=== PATIENT | female | born 1995 | race Caucasian/White ===

== ENCOUNTER 2024-10-11 14:49 | Outpatient (CLI) | payer OTHER, SELFPAY ==
--- OUTSIDE RECORDS SUMMARY | 2024-10-11 15:23 | XMS_ITS | Clinical Summary ---
Author Organization [facility] Health Address [address] [place] [address] Care Team Providers Care Mail Processor Name Role Phone Suad Pineda MD Primary Care Provider [phone] Source Comments [facility],non-owned Affiliates and Associated Physician Practices is amultiple site organization consisting of ambulatory clinics and hospital sitesin [place], [place], [place] and [place]. This disclosure is being madepursuant to the Care Everywhere program and may not contain all information available regarding this patient. Last updated 18.[facility] [employer] Allergies No known active allergies Social History Tobacco Use Types Packs/Day Years Used Date Smoking Tobacco: Never Smokeless Tobacco: Never Alcohol Use Standard Drinks/Week Comments Never 0 (1 standard drink = 0.6 oz pur e alcohol) AUDIT-C Answer Date Recorded Q1: How often do you have a drink containing alc ohol? Never 09/30/2020 Average Number of Drinks Not on file 021 Frequency of Binge Drinking Not on file 09/03 Sex and Gender Information Value Date Recorded Sex Assigned at Not on file Gender Identity Female 02/21/2020 8:23 AM CDT Sexual Orientation Not on file Last Filed Vital Signs Vital Sign Reading Time Taken Comments Blood Pressure 117/76 09/30/2020 2:16 PM CDT Pulse 113 09/30/2020 2:16 PM CDT Temperature 36.3 C (97.3 F) 09/30/2020 2:16 PM CDT Respiratory Rate 18 09/30/2020 2:16 PM CDT Oxygen Saturation 100% 09/30/2020 2:16 PM CDT Inhaled Oxygen Concentration - - Weight 56.2 kg (124 lb) 09/30/2020 2:16 PM CDT Height 160 cm (5' 3 ) 09/30/2020 2:16 PM CDT Body Mass Index 21.97 09/30/2020 2:16 PM CDT Plan of Treatment Health Maintenance Due Date Last Done Comments HIV SCREENING 2009 HEPATITIS C SCREENING 01/19/2012 DTAP/TDAP/TD VACCINES (1 - Tdap) 2013 HEPATITIS B VACCINE (1 of 3 - 19+ 3-dose series) 2013 COVID-19 VACCINE ( - 2023-2 5 season) 2024 DEPRESSION SCREENING 07/04/2024 INFLUENZA VACCINE (Season Ended) 2025 ZOSTER VACCINE (1 of 2) 01/24/2044 HIB VACCINE Aged Out No longer eligi ble based on patient's age to complete this topic HPV VACCINE Aged Out No longer eligi ble based on patient's age to complete this topic MENINGOCOCCAL (Group B) VACC INE SHARED DECISION-MAKING Aged Out No longer eligibl e based on patient's age to complete this topic MENINGOCOCCAL GROUPS A/C/Y/W VACCINE Aged Out No longer eligible b ased on patient's age to complete this topic PNEUMOCOCCAL VACCINE Aged Out No long er eligible based on patient's age to complete this topic Care Teams Mail Processor Relationship Specialty Start Date End Date Suad Pineda MD [address] [place] [address] PCP - General Family Medicine 09/30/20
--- OUTSIDE RECORDS SUMMARY | 2024-10-11 15:23 | XMS_ITS | Clinical Summary ---
Author Organization [facility] Address [address] [place] [address] Phone Care Team Providers Care Principal Technical Architect Name Role Phone Unavailable Primary Care Provider Unavailabl e Allergies Active Allergy Reactions Criticality Noted Date Comments Shellfish Containing Products Anaphylaxis High 09/18 Medications vit-iron fumarate-fa (MONTSERRAT ) 28 mg iron- 800 mcg Tablet Take 1 Tablet by mouth daily. Active ferrous sulfate 325 mg (65 mg iron) tablet Take 325 mg by mouth daily. Active Active Problems Problem Noted Date Diagnosed Date 37 weeks gestation of 12/12/2023 Uterine contractions during 12/12/2023 Hx of section 12/12/2023 Intact amniotic membranes du ring in third trimester 12/08/2023 Encounters Date Type Department Care Team Description 09/19/2024 External Device Data [facility] ABSTRACTION Provider, Abstract 09/08/2024 External Device Data [facility]STRACTION Provider, Abstract 09/07/2024 External Device Data [facility] ABSTRACTION Provider, Abstract 09/04/2024 External Device Data [facility]STRACTION Provider, Abstract 08/22/2024 External Device Data [facility] ABSTRACTION Provider, Abstract 08/21/2024 External Device Data [facility] ABSTRACTION Provider, Abstract 08/07/2024 External Device Data [facility] ABSTRACTION Provider, Abstract 07/31/2024 External Device Data [facility] ABSTRACTION Provider, Abstract 07/26/2024 External Device Data [facility] ABSTRACTION Provider, Abstract 07/25/2024 External Device Data [facility] ABSTRACTION Provider, Abstract 07/24/2024 External Device Data [facility] ABSTRACTION Provider, Abstract from Last 3 Months Immunizations Immunization Administration Dates Next Due (INFANRIX)(6 WKS-6 YRS) DIPT HERIA, TETANUS TOXOIDS, AND ACCELLULAR PERTUSSIS VACCINE (DTAP), 0.5 ML IM 08/29/2019 (PNEUMOVAX 23)(50 YRS UP) PN EUMOCOCCAL POLYSACCHARIDE (PPV23) 0.5 ML, IM 01/28/2022 (SPIKEVAX) (12 YRS UP PRIMAR Y SERIES) COVID-19 VACCINE - MRNA-[id number](PF) 100 MCG/0.5 ML IM SUSP 11/15/2020,10/24/2020 INFLUENZA VACCINE QUADRIVALENT 6 MOS UP PF IM Influenza Seasonal Unspecified Formulation IM Social History Tobacco Use Types Packs/Day Years Used Date Smoking Tobacco: Never Alcohol Use Standard Drinks/Week Comments Not Currently 0 (1 standard drink = 0.6 oz pur e alcohol) Feeling Safe Answer Date Recorded Are you in a relationship wi th someone who hurts you emotionally and/or physically? 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 Gender Identity Not on file Sexual Orientation Not on file Last Filed Vital Signs Vital Sign Reading Time Taken Comments Blood Pressure 125/86 12/14/2023 7:50 AM CDT Pulse 81 12/14/2023 7:50 AM CDT Temperature 36.5 C (97.7 F) 12/14/2023 7:50 AM CDT Respiratory Rate 18 12/14/2023 7:50 AM CDT Oxygen Saturation 99% 12/12/2023 6:00 AM CDT Inhaled Oxygen Concentration - - Weight 87.5 kg (193 lb) 12/12/2023 12:48 AM CDT Height 160 cm (5' 3 ) 12/12/2023 12:48 AM CDT Body Mass Index 34.19 12/12/2023 12:48 AM CDT Plan of Treatment Health Maintenance Due Date Last Done Comments HEPATITIS B VACCINES (1 of 3 - 19+ 3-dose series) 2013 HPV/Cotest (21-29) 2015 CERVICAL CANCER SCREENING 01/24/2024 HPV/Cotest (30-65) 01/24/2024 PAP SMEAR 01/24/2024 INFLUENZA VACCINE (#1) 2024 , 03/21/2019 COVID-19 Vaccine (3 - 2023- season) 2024 11/15/2020, 10/24/2020 DTAP/TDAP/TD VACCINES (2 - Tdap) 08/29/2029 08/29/2019 HPV VACCINES Aged Out No longer elidavid restrepo based on patient's age to complete this topic Insurance [facility] Advance Directives For more information, please contact: [phone] * Full Code (Latest Code Status on File) Date Activated Date Inactivated Comments 12/12/2023 6:45 AM 12/14/2023 2:52 PM * Full Code Date Activated Date Inactivated Comments 12/12/2023 12:44 AM 12/12/2023 6:45 AM * Full Code Date Activated Date Inactivated Comments 12/08/2023 2:41 PM 12/08/2023 6:22 PM * Full Code Date Activated Date Inactivated Comments 09/19/2019 5:37 PM 09/22/2019 12:58 PM * Full Code Date Activated Date Inactivated Comments 09/19/2019 1:09 PM 09/19/2019 5:37 PM
--- OUTSIDE RECORDS SUMMARY | 2024-10-11 15:24 | XMS_ITS | Data Portability ---
Author Organization [place] - [facility] [employer] Address [address] [place] [address] Care Team Providers Care Concrete Batcher Name Role Phone ZAIDA JIMENEZ Cloth Classer LOURDES PEDRAZA Demurrage Clerk Assessment Encounter Date Assessment Date Assessment LastModified by Organization Details LastModified Time 01/12/2023 01/12/2023 Medication Changes D/C Concerta Vyvanse 30 mg qD Counseled on usage of medication. Discussed the purpose of the medication, the classification of the medication. Counseled on SE, AR, administration. Counseled on risks, benefits, plan, outcome of medication. labs to eval levels. Prior authorization completed for tablet vs capsule given her inability to swallow and causing to dissolve in upper esophagus leading to extreme distress and pain. Symptoms worsened d/t difficulties with taking medication. She has previously been given Lexapro, but it does not carry an FDA indication for OCD. Prozac carries an FDA indication for OCD and used for anxiety. Signs and symptoms of when to seek further care reviewed with patient/caregiver /family/facility staff. Patient to follow up with primary care provider or return to clinic for any worsening signs and symptoms. Always present to ER or Urgent Care with any progression of/alarming symptoms, significant changes in symptoms or any concerning or urgent matters. Patient/caregiver /family/facility staff verbalized agreement and understanding of treatment plan. F/U 4 weeks, sooner if needed - telemedicine My total encounter time was 45 minutes which was spent in the activities documented in the note. This includes time spent prior to the visit, performing a medically appropriate examination with evaluation, and after the visit in direct care of the patient (history and exam; ordering prescriptions/lab s/imaging/home health/therapy/sp ecialists; communicating results to patient and/or other relative individuals; counseling/educat ing patient; documenting clinical information in patient s chart; coordination of care for the patient). This time does not include time spent in any separately reportable services. Not available 01/12/2023 11:28:37 02/09/2023 02/09/2023 Medication Changes D/C Concerta Vyvanse 30 mg qD Prior authorization completed for Vyvanse. Approved this time. Will start and see how she does with such. Signs and symptoms of when to seek further care reviewed with patient/caregiver /family/facility staff. Patient to follow up with primary care provider or return to clinic for any worsening signs and symptoms. Always present to ER or Urgent Care with any progression of/alarming symptoms, significant changes in symptoms or any concerning or urgent matters. Patient/caregiver /family/facility staff verbalized agreement and understanding of treatment plan. F/U 4 weeks, sooner if needed - telemedicine My total encounter time was 30 minutes which was spent in the activities documented in the note. This includes time spent prior to the visit, performing a medically appropriate examination with evaluation, and after the visit in direct care of the patient (history and exam; ordering prescriptions/lab s/imaging/home health/therapy/sp ecialists; communicating results to patient and/or other relative individuals; counseling/educat ing patient; documenting clinical information in patient s chart; coordination of care for the patient). This time does not include time spent in any separately reportable services. [email or web address] Not available 02/09/2023 10:19:04 02/28/2024 02/28/2024 Medication Changes Signs and symptoms of when to seek further care reviewed with patient/caregiver /family/facility staff. Patient to follow up with primary care provider or return to clinic for any worsening signs and symptoms. Always present to ER or Urgent Care with any progression of/alarming symptoms, significant changes in symptoms or any concerning or urgent matters. Patient/caregiver /family/facility staff verbalized agreement and understanding of treatment plan. F/U 4 weeks, sooner if needed - telemedicine My total encounter time was 30 minutes which was spent in the activities documented in the note. This includes time spent prior to the visit, performing a medically appropriate examination with evaluation, and after the visit in direct care of the patient (history and exam; ordering prescriptions/lab s/imaging/home health/therapy/sp ecialists; communicating results to patient and/or other relative individuals; counseling/educat ing patient; documenting clinical information in patient s chart; coordination of care for the patient). This time does not include time spent in any separately reportable services. [email or web address] Not available 02/28/2024 19:01:53 03/27/2024 03/27/2024 Assessment: Generalized Anxiety Disorder (TIFFANIE): Partially controlled with fluoxetine 20 mg. Moris reports persistent breakthrough symptoms but is otherwise stable. She requests an increase in her medication to better manage her anxiety. Hypothyroidism: Thyroid function tests are within normal limits. No medication required at this time. Elevated Alkaline Phosphatase: Likely related to changes or IVF treatment. The patient denies any concerning symptoms and will be monitored. Plan: Generalized Anxiety Disorder (TIFFANIE): Increase fluoxetine to 40 mg daily for better symptom control. Follow-up in 3 months via telemedicine to assess response to the increased dosage. Discuss non-pharmacologic al strategies such as mindfulness and relaxation techniques during the next follow-up. Hypothyroidism: Continue monitoring thyroid function without current intervention as levels are normal. Elevated Alkaline Phosphatase: Order repeat alkaline phosphatase labs in 6-8 weeks (post-May 01). Lab order will be sent to [facility]. Follow up with lab results to determine if further investigation is needed. Follow-Up: Schedule next telemedicine visit for June 18 at 2 p.m. Moris to have her blood work completed before the next visit. The fluoxetine prescription has been sent to the pharmacy with a 90-day supply. Signs and symptoms of when to seek further care reviewed with patient/caregiver /family/facility staff. Patient to follow up with primary care provider or return to clinic for any worsening signs and symptoms. Always present to ER or Urgent Care with any progression of/alarming symptoms, significant changes in symptoms or any concerning or urgent matters. Patient/caregiver /family/facility staff verbalized agreement and understanding of treatment plan. F/U 12 weeks, sooner if needed - telemedicine My total encounter time was 30 minutes which was spent in the activities documented in the note. This includes time spent prior to the visit, performing a medically appropriate examination with evaluation, and after the visit in direct care of the patient (history and exam; ordering prescriptions/lab s/imaging/home health/therapy/sp ecialists; communicating results to patient and/or other relative individuals; counseling/educat ing patient; documenting clinical information in patient s chart; coordination of care for the patient). This time does not include time spent in any separately reportable services. [email or web address] Not available 03/27/2024 15:59:25 06/18/2024 06/18/2024 Elevated Alkalin e Phosphatase (Alfos) - Awaiting Alkaline Phosphatase Isoenzymes lab results to determine the source of elevation (liver, bone, intestine, or renal) - Consider potential causes such as tissue damage or adjustment issues Will contact patient upon results. Hypothyroidism - Thyroid function is currently normal - No current medications needed for hypothyroidism - Continue monitoring thyroid function, especially considering the patient's history of thyroid issues Generalized Anxiety Disorder - Patient is doing much better on fluoxetine 40 mg once daily - Schedule an appointment for behavioral health. Vitamin D Deficiency - Prescribe Vitamin D 50,000 units to be taken once a week to increase levels - Monitor Vitamin D levels and adjust treatment as needed Signs and symptoms of when to seek further care reviewed with patient/caregiver /family/facility staff. Patient to follow up with primary care provider or return to clinic for any worsening signs and symptoms. Always present to ER or Urgent Care with any progression of/alarming symptoms, significant changes in symptoms or any concerning or urgent matters. Patient/caregiver /family/facility staff verbalized agreement and understanding of treatment plan. F/U 1 year, sooner if needed My total encounter time was 30 minutes which was spent in the activities documented in the note. This includes time spent prior to the visit, performing a medically appropriate examination with evaluation, and after the visit in direct care of the patient (history and exam; ordering prescriptions/lab s/imaging/home health/therapy/sp ecialists; communicating results to patient and/or other relative individuals; counseling/educat ing patient; documenting clinical information in patient s chart; coordination of care for the patient). This time does not include time spent in any separately reportable services. Not available 06/18/2024 15:56:30 Plan of Treatment Reminders Order Date Submit Date Provider Last Modified By Organization Details Last Modified Time Details Appointments None recorded. Lab CMP, serum or plasma 2023 024 [facility], [id number] Tanja Grant, [address] [place], [address], 4 09:14:08 vitamin D, 25-hydroxy, total, serum 2023 024 [email or web address] [facility], [id number] [place] [address], [address], 4 07:04:23 TSH + free T4, serum 2023 024 [facility], [address] [place] [address], [address], 4 07:57:37 CBC 2023 024 EMETERIO [facility], [address] [place] [address], [address], 4 10:39:06 T3, free, serum or plasma 2023 024 [email or web address] [facility], [address] [place] [address], [address], 4 07:57:38 CMP, serum or plasma 2023 024 [email or web address], [address] [place] [address], [address], 4 02:02:56 thyroid peroxidase (tpo) Ab, serum 2023 024 [facility], [address] [place] [address], [address], 4 07:57:37 TSH + free T4, serum 2022 023 [email or web address] [facility], [id number] [place] [address], [address], 3 14:35:14 T3, free, serum or plasma 2022 023 [email or web address], [address] [address] [facility] [place], [address], 3 14:35:15 CMP, serum or plasma 2022 023 [email or web address], [address] [place], [place] [address], [address], 3 08:56:02 CBC 2022 023 [facility], [facility] [place], [address], 3 08:54:19 vitamin B12, serum 2022 023 [email or web address], [address] [place] [address], [address], 3 14:35:15 iron + TIBC + ferritin, serum 2022 023 [facility], [address] [place], [place] [address]ner [facility] [place], [address], 3 08:56:01 folate, serum 2022 023 [email or web address] [facility], [address] [place] [address], [address], 3 14:35:15 Referral None recorded. Procedures None recorded. Surgeries None recorded. Imaging None recorded. Medication Orders ergocalcife rol (vitamin D2) 1,250 mcg (50,000 unit) capsule 2023 024 [facility], [address] [place] [address], [id number], 4 15:06:09 fluoxetine 40 mg capsule 2023 024 [facility]84603, [address] [place] [address], [id number], 4 15:01:40 fluoxetine 40 mg capsule 2023 024 [facility], [address] [place] [address], [id number], 4 14:53:59 fluoxetine 20 mg capsule 2023 024 [facility], [address] [place] [address], [id number], 4 14:52:19 levothyroxi ne 75 mcg tablet 2022 023 [facility], [address] [place] [address], [id number], 3 10:00:02 Vyvanse 30 mg capsule 2022 023 [email or web address] [facility]35412, [address] [place] [address], [id number], 3 10:00:26 fluoxetine 10 mg tablet 2022 023 [facility], [address] [place] [address], [id number], 3 09:59:45 fluoxetine 20 mg capsule 2022 023 [email or web address] [facility] #81455, [address] [place] [address], [id number], 4 14:51:51 Vyvanse 30 mg capsule 2022 023 [email or web address] [facility], [address] [place] [address], [id number], 3 10:00:26 fluoxetine 10 mg tablet 2022 023 [email or web address] [facility] #41538, [address], [place], [id number], 3 09:59:36 fluoxetine 20 mg tablet 2022 023 [email or web address] [facility] #16516, [address], [place], [id number], 3 09:27:51 Patient TargetsNo targets recorded. Patient InstructionsNo instructions recorded. Reason for Referral None Reported. Results Created Date Observation Date Name Description Value Unit Range Abnormal Flag Note LastModifiedBy Organization Detail LastModifiedTime 01/13/2001/13/2023 CBC (H/H, RBC, INDIC ES, WBC, PLT) white blood cell count 4.2 thous and/u L 3.8-10 .8 normal Not Available [facility] [address], [address], 01/13/2023 08:54:19 01/13/2001/13/2023 CBC (H/H, RBC, INDIC ES, WBC, PLT) red blood cell count 5.05 nathaly on/uL 3.80-5 .10 normal Not Available [address], [address], 01/13/2023 08:54:19 01/13/2001/13/2023 CBC (H/H, RBC, INDIC ES, WBC, PLT) hemoglobin 12.7 g/dL 11.7-1 5.5 normal Not Available [facility] [address], [address], 01/13/2023 08:54:19 01/13/2001/13/2023 CBC (H/H, RBC, INDIC ES, WBC, PLT) hematocrit 41.0 % 35.0-4 5.0 normal Not Available [facility] [facility] [address] [place], [address], 01/13/2023 08:54:19 01/13/2001/13/2023 CBC (H/H, RBC, INDIC ES, WBC, PLT) MCV 81.2 fL 80.0-1 00.0 normal Not Available [facility] [address], [address], 01/13/2023 08:54:19 01/13/2001/13/2023 CBC (H/H, RBC, INDIC ES, WBC, PLT) MCH 25.1 pg 27.0-3 3.0 low Not Available [facility] [address], [address], 01/13/2023 08:54:19 01/13/2001/13/2023 CBC (H/H, RBC, INDIC ES, WBC, PLT) MCHC 31.0 g/dL 32.0-3 6.0 low Not Available [facility] [address], [address], 01/13/2023 08:54:01/13/2001/13/2023 CBC (H/H, RBC, INDIC ES, WBC, PLT) RDW 13.1 % 11.0-1 5.0 normal Not Available [facility] [address], [address], 01/13/2023 08:54:19 01/13/2001/13/2023 CBC (H/H, RBC, INDIC ES, WBC, PLT) platelet count 334 thous and/u L 140-40 0 normal Not Available [facility] [address], [address], 01/13/2023 08:54:19 01/13/2001/13/2023 CBC (H/H, RBC, INDIC ES, WBC, PLT) MPV 9.8 fL 7.5-12 .5 normal Not Available [facility] - [address], [address], 01/13/2023 08:54:19 01/13/2001/14/2023 IRON, TIBC AND RODNEY TIN PANEL iron, total 87 mcg/d L 40-190 normal Not Available [address], [address], 01/14/2023 01:59:01 01/13/2001/14/2023 IRON, TIBC AND RODNEY TIN PANEL iron binding capacity 456 mcg/d L_(ca lc) 250-45 0 high Not Available [address], [address], 01/14/2023 01:59:01 01/13/2001/14/2023 IRON, TIBC AND RODNEY TIN PANEL % saturation 19 %_(ca lc) 16-45 normal Not Available [address], [address], 01/14/2023 01:59:01 01/13/2001/14/2023 IRON, TIBC AND RODNEY TIN PANEL ferritin 20 NG/mL 16-154 normal Not Available [address], [address], 01/14/2023 01:59:01 01/13/2001/14/2023 TSH+F REE T4 TSH 1.58 mIU/L normal Refer ence Range > or = 20 Years 0.40- 4.50 Pregn radha Range s First trime ster 0.26- 2.66 Secon d trime ster 0.55- 2.73 Third trime ster 0.43- 2.91 Not Available [address], [address], 01/14/2023 01:59:02 01/13/20 23 01/14/2023 TSH+F REE T4 T4, free 1.5 NG/dL 0.8-1. 8 normal Not Available [address] [place], [address], 01/14/2023 01:59:02 01/13/2001/13/2023 COMPR EHENS CASS METAB OLIC PANEL glucose 93 mg/dL 65-99 normal Fasti ng refer ence inter eulalio Not Available [address], [address], 01/13/2023 14:19:09 01/13/2001/13/2023 COMPR EHENS CASS METAB OLIC PANEL urea nitrogen (BUN) 9 mg/dL 7-25 normal Not Available [address], [address], 01/13/2023 14:19:09 01/13/2001/13/2023 COMPR EHENS CASS METAB OLIC PANEL creatinine 0.70 mg/dL 0.50-0 .96 normal Not Available [address], [address], 01/13/2023 14:19:01/13/2001/13/2023 COMPR EHENS CASS METAB OLIC PANEL eGFR 121 mL/mi n/1.7 3m2 > or = 60 normal The eGFR is based on the CKD-E PI 2020 equat ion. To calcu late the new eGFR from a previ ous Creat inine or Cysta tin C resul t, go to https ://freida arias.o annamaria/ioana abraham/ kdoqi /gfr% 5Fcal culat or Not Available [address] [address] [place], [address], 01/13/2023 14:19:09 01/13/2001/13/2023 COMPR EHENS CASS METAB OLIC PANEL BUN/creatini ne ratio NOT APPLIC ABLE (calc ) 6-22 Not Available [address], [address], 01/13/2023 14:19:09 01/13/20 23 01/13/2023 COMPR EHENS CASS METAB OLIC PANEL sodium 137 mmol/ L 135-14 6 normal Not Available [address], [address], 01/13/2023 14:19:09 01/13/20 23 01/13/2023 COMPR EHENS CASS METAB OLIC PANEL potassium 4.7 mmol/ L 3.5-5. 3 normal Not Available [address], [address], 01/13/2023 14:19:01/13/2001/13/2023 COMPR EHENS CASS METAB OLIC PANEL chloride 105 mmol/ L 98-110 normal Not Available [address], [address], 01/13/2023 14:19:01/13/20 23 01/13/2023 COMPR EHENS CASS METAB OLIC PANEL carbon dioxide 18 mmol/ L 20-32 low Not Available [address], [address], 01/13/2023 14:19:09 01/13/20 23 01/13/2023 COMPR EHENS CASS METAB OLIC PANEL calcium 9.3 mg/dL 8.6-10 .2 normal Not Available [address], [address], 01/13/2023 14:19:09 01/13/2001/13/2023 COMPR EHENS CASS METAB OLIC PANEL protein, total 6.9 g/dL 6.1-8. 1 normal Not Available [address], [address], 01/13/2023 14:19:09 01/13/20 23 01/13/2023 COMPR EHENS CASS METAB OLIC PANEL albumin 4.3 g/dL 3.6-5. 1 normal Not Available [address] [place], [address], 01/13/2023 14:19:09 01/13/20 23 01/13/2023 COMPR EHENS CASS METAB OLIC PANEL globulin 2.6 g/dL_ (calc ) 1.9-3. 7 normal Not Available [address] [address] [place], [address], 01/13/2023 14:19:09 01/13/20 23 01/13/2023 COMPR EHENS CASS METAB OLIC PANEL albumin/glob ulin ratio 1.7 (calc ) 1.0-2. 5 normal Not Available [address], [address], 01/13/2023 14:19:01/13/20 23 01/13/2023 COMPR EHENS CASS METAB OLIC PANEL bilirubin, total 0.3 mg/dL 0.2-1. 2 normal Not Available [address] [address] [place], [address], 01/13/2023 14:19:01/13/20 23 01/13/2023 COMPR EHENS CASS METAB OLIC PANEL alkaline phosphatase 56 U/L 31-125 normal Not Available [place] [address] [place], [address], 01/13/2023 14:19:09 01/13/20 23 01/13/2023 COMPR EHENS CASS METAB OLIC PANEL AST 13 U/L 10-30 normal Not Available [address] [address] [place], [address], 01/13/2023 14:19:09 01/13/20 23 01/13/2023 COMPR EHENS CASS METAB OLIC PANEL ALT 12 U/L 6-29 normal Not Available [address] [place] [address] [place], [address], 01/13/2023 14:19:09 01/13/2001/14/2023 FOLAT E, SERUM folate, serum 16.1 NG/mL normal Refer ence Range Low: <3.4 Borde rline : 3.4-5 .4 Lora l: >5.4 Not Available [address], [address], 01/14/2023 01:59:04 01/13/2001/14/2023 VITAM IN B12 vitamin B12 329 pg/mL 200-11 00 normal Pleas e Note: Altho ugh the refer ence range for vitam in B12 is 200-1 100 pg/mL , it has been repor kurt that betwe en 5 and 10% of patie nts with value s betwe en 200 and 400 pg/mL may exper ience neuro psych iatri c and hemat ologi c abnor malit ies due to occul t B12 defic iency ; less than 1% of patie nts with value s above 400 pg/mL will have sympt oms. Not Available [address], [address], 01/14/2023 01:59:04 01/13/2001/14/2023 T3, FREE T3, free 3.1 pg/mL 2.3-4. 2 normal Not Available [address], [address], 01/14/2023 01:59:05 02/28/2002/29/2024 CBC (H/H, RBC, INDIC ES, WBC, PLT) white blood cell count 6.9 thous and/u L 3.8-10 .8 normal Not Available [facility] [facility] [address], [address], 02/29/2024 10:39:05 02/28/2002/29/2024 CBC (H/H, RBC, INDIC ES, WBC, PLT) red blood cell count 5.11 nathaly on/uL 3.80-5 .10 high Not Available [address] [place], [address], 02/29/2024 10:39:05 02/28/20 24 02/29/2024 CBC (H/H, RBC, INDIC ES, WBC, PLT) hemoglobin 12.5 g/dL 11.7-1 5.5 normal Not Available [address], [address], 02/29/2024 10:39:05 02/28/20 24 02/29/2024 CBC (H/H, RBC, INDIC ES, WBC, PLT) hematocrit 42.5 % 35.0-4 5.0 normal Not Available [address], [address], 02/29/2024 10:39:05 02/28/20 24 02/29/2024 CBC (H/H, RBC, INDIC ES, WBC, PLT) MCV 83.2 fL 80.0-1 00.0 normal Not Available [address], [address], 02/29/2024 10:39:05 02/28/20 24 02/29/2024 CBC (H/H, RBC, INDIC ES, WBC, PLT) MCH 24.5 pg 27.0-3 3.0 low Not Available [address], [address], 02/29/2024 10:39:05 02/28/20 24 02/29/2024 CBC (H/H, RBC, INDIC ES, WBC, PLT) MCHC 29.4 g/dL 32.0-3 6.0 low Not Available [address], [address], 02/29/2024 10:39:05 02/28/20 24 02/29/2024 CBC (H/H, RBC, INDIC ES, WBC, PLT) RDW 13.9 % 11.0-1 5.0 normal Not Available [facility] [address], [place], [address], 02/29/2024 10:39:05 02/28/20 24 02/29/2024 CBC (H/H, RBC, INDIC ES, WBC, PLT) platelet count 303 thous and/u L 140-40 0 normal Not Available [address], [address], 02/29/2024 10:39:05 02/28/20 24 02/29/2024 CBC (H/H, RBC, INDIC ES, WBC, PLT) MPV 10.0 fL 7.5-12 .5 normal Not Available [address], [address], 02/29/2024 10:39:05 02/28/20 24 03/02/2024 COMPR EHENS CASS METAB OLIC PANEL glucose 87 mg/dL 65-99 normal Fasti ng refer ence inter eulalio Not Available [address], [address], 03/02/2024 02:02:56 02/28/20 24 03/02/2024 COMPR EHENS CASS METAB OLIC PANEL urea nitrogen (BUN) 22 mg/dL 7-25 normal Not Available [address], [address], 03/02/2024 02:02:56 02/28/20 24 03/02/2024 COMPR EHENS CASS METAB OLIC PANEL creatinine 0.59 mg/dL 0.50-0 .97 normal Not Available [address], [address], 03/02/2024 02:02:56 02/28/20 24 03/02/2024 COMPR EHENS CASS METAB OLIC PANEL eGFR 124 mL/mi n/1.7 3m2 > or = 60 normal Not Available [address], [address], 03/02/2024 02:02:56 02/28/20 24 03/02/2024 COMPR EHENS CASS METAB OLIC PANEL BUN/creatini ne ratio SEE NOTE: (calc ) 6-22 Not Repor kurt: BUN and Creat inine are withi n refer ence range . Not Available [address], [address], 03/02/2024 02:02:56 02/28/20 24 03/02/2024 COMPR EHENS CASS METAB OLIC PANEL sodium 140 mmol/ L 135-14 6 normal Not Available [address], [address], 03/02/2024 02:02:56 02/28/20 24 03/02/2024 COMPR EHENS CASS METAB OLIC PANEL potassium 3.8 mmol/ L 3.5-5. 3 normal Not Available [address], [address], 03/02/2024 02:02:56 02/28/20 24 03/02/2024 COMPR EHENS CASS METAB OLIC PANEL chloride 108 mmol/ L 98-110 normal Not Available [address], [address], 03/02/2024 02:02:56 02/28/20 24 03/02/2024 COMPR EHENS CASS METAB OLIC PANEL carbon dioxide 21 mmol/ L 20-32 normal Not Available [address], [address], 03/02/2024 02:02:56 02/28/20 24 03/02/2024 COMPR EHENS CASS METAB OLIC PANEL calcium 9.0 mg/dL 8.6-10 .2 normal Not Available [address], [address], 03/02/2024 02:02:56 02/28/20 24 03/02/2024 COMPR EHENS CASS METAB OLIC PANEL protein, total 6.7 g/dL 6.1-8. 1 normal Not Available [facility] [address], [address], 03/02/2024 02:02:56 02/28/20 24 03/02/2024 COMPR EHENS CASS METAB OLIC PANEL albumin 4.4 g/dL 3.6-5. 1 normal Not Available [address], [address], 03/02/2024 02:02:56 02/28/20 24 03/02/2024 COMPR EHENS CASS METAB OLIC PANEL globulin 2.3 g/dL_ (calc ) 1.9-3. 7 normal Not Available [address], [address], 03/02/2024 02:02:56 02/28/20 24 03/02/2024 COMPR EHENS CASS METAB OLIC PANEL albumin/glob ulin ratio 1.9 (calc ) 1.0-2. 5 normal Not Available [facility] [address], [address], 03/02/2024 02:02:56 02/28/20 24 03/02/2024 COMPR EHENS CASS METAB OLIC PANEL bilirubin, total 0.3 mg/dL 0.2-1. 2 normal Not Available [address], [address], 03/02/2024 02:02:56 02/28/20 24 03/02/2024 COMPR EHENS CASS METAB OLIC PANEL alkaline phosphatase 145 U/L 31-125 high Not Available [facility] [employer] [address], [address], 03/02/2024 02:02:56 02/28/20 24 03/02/2024 COMPR EHENS CASS METAB OLIC PANEL AST 12 U/L 10-30 normal Not Available [facility] [employer] [address], [address], 03/02/2024 02:02:56 02/28/20 24 03/02/2024 COMPR EHENS CASS METAB OLIC PANEL ALT 15 U/L 6-29 normal Not Available [address], [address], 03/02/2024 02:02:56 02/28/20 24 03/02/2024 TSH+F REE T4 TSH 0.91 mIU/L normal Refer ence Range > or = 20 Years 0.40- 4.50 Pregn radha Range s First trime ster 0.26- 2.66 Secon d trime ster 0.55- 2.73 Third trime ster 0.43- 2.91 Not Available [address], [address], 03/02/2024 08:48:48 02/28/20 24 03/02/2024 TSH+F REE T4 T4, free 1.1 NG/dL 0.8-1. 8 normal Not Available [address], [address], 03/02/2024 08:48:48 02/28/20 24 03/02/2024 THYRO ID PEROX IDASE ANTIB ODIES thyroid peroxidase antibodies <1 IU/mL <9 Not Available [address], [address], 03/02/2024 08:48:51 02/28/20 24 03/02/2024 T3, FREE T3, free 2.8 pg/mL 2.3-4. 2 normal Not Available [address], [address], 03/02/2024 08:48:52 02/28/20 24 03/02/2024 VITAM IN D,25- OH,TO KATHERIN,I A vitamin D,25-oh,tota l,ia 28 NG/mL 30-100 low Vitam in D Statu s 25-OH Vitam in D: Defic iency : <20 ng/mL Insuf ficie ncy: 20 - 29 ng/mL Optim al: > or = 30 ng/mL For 25-OH Vitam in D testi ng on patie nts on D2-neely pplem entat ion and patie nts for whom quant itati on of D2 and D3 fract ions is requi red, the [employer] Assur eD(TM ) 25-OH VIT D, (D2,D 3), LC/MS /MS is recom garcía d: order code 22160 (drake ents >2yrs ). See Note 1 Note 1 For addit ional infor ignacio mcneil refer to http: //[facility] venessa thomas.Damián stDia gnost ics.[email or web address] om/fa q/FAQ 199 (This link is being provi ded for infor alfonzo patino/ educzhen rios purpo ses only. ) Not Available [address] [place] [address] [place], [address], 03/02/2024 07:40:48 Result Notes None recorded. Problems Name Problem SNOMED Code Status Onset Date Resolution Date Notes Provider Name and Address Organization Details Recorded Time Adult attention deficit hyperactivi ty disorder 103541894 Active 2020 BARBI Prajapati, PMHNP-BC [address] [place], [address], [facility] 3 11:05:19 Adult attention deficit hyperactivi ty disorder 853849075 Active 2020 BARBI Prajapati, PMHNP-BC [address] [place], [address], [facility] 3 11:05:19 Anxiety 40234431 Active 2020 BARBI Prajapati, PMHNP-BC [address] [place], [address], [place] [facility] 3 11:05:19 Hypothyroid ism 72173740 Active 2020 Crystal L. Stone, CHOIR SINGER-BC, PMHNP-BC [address], [place], [address], [facility] 3 11:05:19 Generalized anxiety disorder 46629604 Active 2021 CHELA PrajapatiP-BC, PMHNP-BC [address], [place], [address], [facility] 3 11:05:19 Moderate recurrent major depression 32228901 Active 2021 CHELA PrajapatiP-BC, PMHNP-BC [address], [place], [address], [facility] 3 11:05:19 Panic attack 477655704 Active 2021 CHELA PrajapatiP-BC, PMHNP-BC [address], [place], [address], [facility] 3 11:05:19 Positive screening for depression on PHQ-9 (Patient Health Questionnai re 9) 7495375338692 00 Active 2021 DUKE Prajapati-BC, PMHNP-BC [address], [place], [address], [facility] 3 11:05:19 Obsessive-c ompulsive disorder 899333155 Active 2022 CHELA PrajapatiP-BC, PMHNP-BC [address], [place], [address], [facility] 3 11:05:19 Vitamin D deficiency 59701371 Active 2023 Evelina Gómez CHOIR SINGER-BC, PMHNP-BC [address], [place], [address], [facility] 4 19:00:35 Problem Notes None recorded. Procedures Surgical History Date Name Laterality Status Provider Name and Address Organization Details Recorded Time 4 ligation of bilateral fallopian tubes completed Deborah Evans [facility] 03/13/2024 17:35:31 Date of Last Pap Smear completed [facility] 02/27/2021 10:51:57 0 section completed Nidhi Sood [facility] 02/27/2021 10:51:24 Hip Surgery completed Nidhi Sood [facility] 02/27/2021 10:51:39 Imaging Results None recorded. Procedure Notes None recorded. Medical Equipment None Reported. Allergies Allergen ID Allergen Name Allergen Category Reaction Reaction Severity Criticality Documentation Date Start Date Code Code System Note Provider Name and Address Organization Details Recorded Time 3874 shellfish derived food,medi cation anaphylax is severe Not available 02/27/2021 [id number] UNK ROBYN Manzo [facility] 10:42:55 Medications Name Sig Start Date Stop Date Status Note LastModified by Organization Details LastModified Time Prescriptio n - Change 01/12 completed Not Available Not Available Not Available BD Regular Bevel [place] 27 gauge x 1/2 USE DIRECTED TO INJECT MENOPUR 03/25 completed Not Available Not Available Not Available fluoxetine 40 mg capsule Take 1 capsule every day by oral route for 90 days. active Not Available Not Available No t Available medroxyprog esterone 10 mg tablet TAKE 1 TABLET BY MOUTH DAILY 12/04 completed Not Available Not Available Not Available metformin 500 mg tablet TAKE 1 TABLET BY MOUTH TWICE DAILY 06/11 completed Not Available Not Available Not Available azithromyci n 250 mg tablet TAKE 2 TABLETS BY MOUTH FOR 1 DAY THEN TAKE 1 TABLET BY MOUTH DAILY FOR 4 DAYS 03/25 completed Not Available Not Available Not Available fluoxetine 10 mg tablet Take 1 tablet every day by oral route for 90 days. 06/11 completed Not Available Not Available Not Available Pregnyl 10,000 unit intramuscul ar solution 02/27 completed Not Available Not Available Not Available amoxicillin 500 mg tablet active Not Available Not Available Not Available levothyroxi ne 25 mcg tablet TAKE 1 TABLET BY MOUTH EVERY DAY 02/27 completed Not Available Not Available Not Available levothyroxi ne 75 mcg tablet Take 1 tablet every day by oral route for 90 days. 06/11 completed Not Available Not Available Not Available progesteron e 50 mg/mL intramuscul ar oil 02/27 completed Not Available Not Available Not Available lorazepam 0.5 mg tablet Take 1 tablet twice a day by oral route as needed for 30 days. 03/25 completed Not Available Not Available Not Available BD Luer-Jose Syringe 3 mL 23 gauge x 1 1/2 USE DIRECTED FOR HCG 02/27 completed Not Available Not Available Not Available levothyroxi ne 50 mcg tablet TAKE 1 TABLET BY MOUTH EVERY DAY 02/27 completed Not Available Not Available Not Available fluoxetine 20 mg tablet TAKE 1 TABLET BY MOUTH EVERY DAY 02/09 completed Not Available Not Available Not Available fluoxetine 10 mg capsule 06/11 completed Not Available Not Available Not Available dexamethaso ne 0.75 mg tablet TAKE 1 TABLET BY MOUTH DAILY 02/27 completed Not Available Not Available Not Available dextroamphe tamine-amph etamine ER 10 mg 24hr capsule,ext end release 05/15 completed Not Available Not Available Not Available alcohol swabs USE DIRECTED 03/25 completed Not Available Not Available Not Available ergocalcife rol (vitamin D2) 1,250 mcg (50,000 unit) capsule Take 1 capsule every week by oral route for 90 days. active Not Available Not Available No t Available letrozole 2.5 mg tablet 02/27 completed Not Available Not Available Not Available BD Luer-Jose Syringe 3 mL 18 x 1 1/2 USE TO DRAW UP PROGESTER ONE 02/27 completed Not Available Not Available Not Available ondansetron 4 mg disintegrat ing tablet DISSOLVE ONE TABLET ON THE TONGUE EVERY 6 HOURS NEEDED FOR NAUSEA 06/11 completed Not Available Not Available Not Available methylpheni date ER 18 mg tablet,exte nded release 24 hr Take 1 tablet every day by oral route at noon for 30 days. 01/12 completed Not Available Not Available Not Available fluoxetine 20 mg capsule TAKE 1 CAPSULE BY MOUTH EVERY DAY 03/27 completed Not Available Not Available Not Available BD Luer-Jose Syringe 3 mL 22 x 1 1/2 USE TO DRAW UP AND MIX MENOPUR 03/25 completed Not Available Not Available Not Available leuprolide 1 mg/0.2 mL subcutaneou s kit INJECT 40 UNITS UNDER THE SKIN ONCE WHEN DIRECTED IN CYCLE CALENDAR 03/25 completed Not Available Not Available Not Available methylpheni date ER 36 mg tablet,exte nded release 24 hr TAKE 1 TABLET BY MOUTH EVERY DAY 01/12 completed Not Available Not Available Not Available metoclopram monalisa 10 mg tablet TAKE 1 TABLET BY MOUTH EVERY 8 HOURS NEEDED FOR NAUSEA 02/27 completed Not Available Not Available Not Available amoxicillin 875 mg-potassiu m clavulanate 125 mg tablet TAKE 1 TABLET BY MOUTH EVERY 12 HOURS UNTIL ALL TAKEN 02/27 completed Not Available Not Available Not Available oxycodone 5 mg tablet TAKE 1 TABLET BY MOUTH EVERY 4-6 HOURS NEEDED FOR PAIN 02/27 completed Not Available Not Available Not Available enoxaparin 40 mg/0.4 mL subcutaneou s syringe 03/25 completed Not Available Not Available Not Available escitalopra m 10 mg tablet TAKE 1 TABLET BY MOUTH EVERY DAY 01/28 completed Not Available Not Available Not Available escitalopra m 20 mg tablet TAKE 1 TABLET BY MOUTH TWICE DAILY 01/28 completed Not Available Not Available Not Available [employer] USE DIRECTED 02/27 completed Not Available Not Available Not Available ganirelix 250 mcg/0.5 mL subcutaneou s syringe INJECT 1 SYRINGE UNDER THE SKIN EVERY MORNING DIRECTED IN CYCLE CALENDAR 03/25 completed Not Available Not Available Not Available BD SafetyGlide Insulin Syringe 1 mL 29 gauge x 1/2 USE DIRECTED TO INJECT LEUPROLID E 03/25 completed Not Available Not Available Not Available nitrofurant oin monohydrate /macrocryst als 100 mg capsule TAKE ONE CAPSULE BY MOUTH TWICE DAILY FOR 5 DAYS 02/27 completed Not Available Not Available Not Available BD PrecisionGl monalisa 25 gauge x 1 needle USE FOR HCG INJECTION 02/27 completed Not Available Not Available Not Available Menopur 75 unit subcutaneou s solution INJECT 75 UNITS UNDER THE SKIN IN THE EVENING DIRECTED IN CYCLE CALENDAR 03/25 completed Not Available Not Available Not Available dexmethylph enidate ER 15 mg capsule,ext ended release [id number] TAKE 1 CAPSULE BY MOUTH EVERY DAY 11/12 /2021 completed Not Available Not Available Not Available Vyvanse 30 mg capsule Take 1 capsule every day by oral route for 30 days. 06/11 completed Not Available Not Available Not Available BD Regular Bevel [place] 21 gauge x 1 1/2 USE TO INJECT PROGESTER ONE 02/27 completed Not Available Not Available Not Available levothyroxi ne 75 mcg capsule Take 1 capsule every day by oral route. 03/23 completed Not Available Not Available Not Available Gonal-F RFF Redi-Ject 450 unit/0.75 mL subcutaneou s pen injector INJECT 225 UNITS UNDER THE SKIN IN THE EVENING DIRECTED IN CYCLE CALENDAR 03/25 completed Not Available Not Available Not Available Isibloom 0.15 mg-0.03 mg tablet TAKE 1 TABLET BY MOUTH DAILY 02/09 completed Not Available Not Available Not Available ID NOW COVID-19 Test Kit TEST DIRECTED 12/04 completed Not Available Not Available Not Available Vitals Date Recorded Body height Body mass index (BMI) Body weight Heart rate Respiratory rate Oxygen saturation Oxygen saturation in Arterial blood by Pulse oximetry Body temperature Pain severity - 0-10 verbal numeric rating [Score] - Reported Systolic blood pressure Diastolic blood pressure Provider Name and Address Organization Details Last Updated DateTime 3 160.02 cm 28.2 kg/m2 78768.9 1 g 73 /min 16 /min 100 % 100 % 98.3 [degF] 0 117 mm[Hg] 73 mm[Hg] Daniel Peter [facility] 3 10:40:42 Date Recorded Body height Body mass index (BMI) Body weight Heart rate Respiratory rate Oxygen saturation Oxygen saturation in Arterial blood by Pulse oximetry Body temperature Pain severity - 0-10 verbal numeric rating [Score] - Reported Systolic blood pressure Diastolic blood pressure Provider Name and Address Organization Details Last Updated DateTime 4 158.75 cm 26.5 kg/m2 70339.8 g 80 /min 20 /min 98 % 98 % 97.7 [degF] 0 115 mm[Hg] 68 mm[Hg] Ruby David [facility] 4 15:14:33 Social History Question Answer Notes LastModified by Organizat ion Details LastModified Time Tobacco Smoking Status Never Smoker Nidhi Nick atilio [place] [facility] 02/27/2021 10:49:12 Do You Have An Advance Directive? No Information n ot available 02/27/2021 What Is Your Level Of Alcohol Consumption? None Information not available 02/27/2021 Are You Currently Sexually Active With Anyone Who Has Traveled (within The Last 12 Weeks) To A Zika-affected Area? No Information not available 02/27/2021 Do You Wear A Helmet When Biking? Yes Information not available 02/27/2021 Are You Blind Or Do You Have Difficulty Seeing? No Information n ot available 02/27/2021 Is Blood Transfusion Acceptable In An Emergency? Yes [email or web address] Information not available 01/28/2022 What Is Your Level Of Caffeine Consumption? Heavy Information not available 02/27/2021 What Type Of Patient Admitting Representative Do You Use? Relative Information not available 03/20/2021 What Is Your Code Status? Full Code Information not available 02/27/2021 In The 14 Days Before Symptom Onset, Have You Had Close Contact With A Laboratory-confirm ed COVID-19 While That Case Was Ill? No Information n ot available 02/27/2021 In The 14 Days Before Symptom Onset, Have You Had Close Contact With A Person Who Is Under Investigation For COVID-19 While That Person Was Ill? No Information not available 02/27/2021 Have You Been To An Area Known To Be High Risk For COVID-19? No Information not available 02/27/2021 Are You Currently Employed? Yes Information not available 02/27/2021 Are You Deaf Or Do You Have Serious Difficulty Hearing? No Information not available 02/27/2021 What Type Of Diet Are You Following? REGULAR Information n ot available 02/27/2021 Have You Processed Blood Or Body Fluids From An Ebola Virus Disease Patient Without Appropriate PPE? No Information not available 02/27/2021 Do You Reside In Or Have You Traveled To An Area Where Ebola Virus Transmission Is Active? No Information not available 02/27/2021 What Is The Highest Grade Or Level Of School You Have Completed Or The Highest Degree You Have Received? 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 5 Information not available 02/27/2021 On Those Days That You Engage In Moderate To Strenuous Exercise, How Many Minutes, On Average, Do You Exercise? 1 Information not available 02/27/2021 Have There Been Any Changes To Your Family Or Social Situation? No [email or web address] Information no t available 03/20/2021 What Is The Fluoride Status Of Your Home? Fluoridated Information not available 02/27/2021 Are There Any Guns Present In Your Home? Yes Information not available 02/27/2021 Which Of Your Hands Is Dominant? Right Information n ot available 02/27/2021 Have You Recently Or Are You Planning To Travel To An Area With Zika Virus? No Information not available 02/27/2021 Do You Use Insect Repellent Routinely? No Information not available 02/27/2021 Do You Have A Medical Power Of Brine Room Laborer? No Information not available 02/27/2021 What Was The Date Of Your Most Recent Tobacco Screening? 02/28/2024 [email or web address] Information not available 02/28/2024 How Many Children Do You Have? 1 Information not available 02/27/2021 Do You Have Any Pets? Yes Information not available 02/27/2021 Do You Use Protection During Sex? No Information not available 01/28/2022 What Is Your Relationship Status? Information not available 02/27/2021 Do You Use Your Seat Belt Or Car Seat Routinely? Yes Information not available 02/27/2021 Are You Sexually Active? Yes Information not available 02/27/2021 Do You Have Smoke And Carbon Monoxide Detectors In Your Home? Yes Information not available 02/27/2021 Are You Passively Exposed To Smoke? No Information no t available 02/27/2021 Do You Participate In Social Media? Yes Information not available 01/28/2022 Do You Feel Stressed (tense, Restless, Nervous, Or Anxious, Or Unable To Sleep At Night)? [id number] Information not available 02/27/2021 Do You Use Any Illicit Or Recreational Drugs? No Information not available 02/27/2021 Do You Use Sunscreen Routinely? No Information not available 02/27/2021 Have You Recently Traveled Abroad? No Information not available 02/27/2021 Are You Currently In School? Yes Information not available 02/27/2021 Do You Have Any Dietary Restrictions? No Information not available 02/27/2021 Do You Or Have You Ever Used Any Other Forms Of Tobacco Or Nicotine? No Information not available 02/27/2021 Sex: Female Functional Status Question Answer Note LastModified by Organizat ion Details LastModified Time Do you have difficulty walking or climbing stairs? No Information not available 02/27/2021 Do you have transportation difficulties? No Information not available 02/27/2021 Are you able to walk? YESWOREST Information not available 02/27/2021 Do you have difficulty doing errands alone? No Information not available 02/27/2021 Are you able to care for yourself? Yes Information not available 02/27/2021 Do you have difficulty dressing or bathing? No Information not available 02/27/2021 What is your exercise level? Moderate Information not available 02/27/2021 Mental Status Question Answer Note LastModified by Organization D etails LastModified Time Do you have difficulty concentrating, remembering or making decisions? No Information no t available 02/27/2021 Family History Relationship Description Onset Age of this Age Resolved Age Notes LastModified by Organization Details LastModified Time Father Diabetes mellitus Not available 2020 10:46:01 Father Hypertensive disorder Not available 2020 10:46:10 Father Attention deficit hyperactivit y disorder Not available 15:46:37 Father Hyperlipidem ia [email or web address] Not available 02/02 15:48:44 Mother Anxiety disorder [email or web address] Not available 02/02 15:46:17 Mother Disorder of thyroid gland [email or web address] Not available 02/02 15:50:08 Maternal Grandmother Bipolar disorder [email or web address] Not available 02/02 15:46:51 Maternal Grandmother Borderline personality disorder [email or web address] Not available 02/02 15:47:04 Paternal Grandmother Malignant neoplasm of skin [email or web address] Not available 02/02 15:47:24 Paternal Grandmother 66 [email or web address] Not available 15:47:47 Paternal Grandmother Cerebrovascu lar accident [email or web address] Not available 0 02/28/2024 15:49:54 Paternal Grandfather 78 [email or web address] Not available 15:47:59 Paternal Grandfather Diabetes mellitus [email or web address] Not available 02/02 15:48:18 Paternal Uncle Diabetes mellitus [email or web address] Not available 02/02 15:48:24 Paternal Uncle Fibrosis of lung [email or web address] Not available 02/02 15:49:09 Paternal Uncle Transplant of lung [email or web address] Not available 02/02 15:49:21 Son Seizure disorder [email or web address] Not available 02/02 15:49:36 Medical History Condition Response Attention Deficit Disorder (ADD/ADHD) Y Depression Y Anxiety Disorder Y Gynecological Diseases / Disorders Y Cardiac Diseases / Disorders Fractures Y Psychiatric Diseases / Disorders Allergies/Hayfever Y Osteoarthritis Y Hospitalizations N Pulmonary Diseases / Disorders Y Diabetes Y Endocrine Diseases / Disorders Y Neurological Diseases / Disorders Y Hypertension Y Gynecological History Statement/Question Response Date of Last Pap Smear 02/26/2021 Obstetrics History GPAL:G 2 P 0 1 0 2 Type Value Full Term 0 Induced 0 Premature 1 Living 2 Ectopics 0 Total 2 Immunizations Vaccine Type Date Status Note Provider Nam e and Address Organization Details Recorded Time Influenza, split virus, quadrivalent, PF 1 completed Not Available [facility]/20[facility]21 14:27:52 pneumococcal polysaccharide PPV23 2 completed Jacygamaliel David [facility] 01/28/2022 14:07:16 COVID-19, mRNA, LNP-S, PF, 100 mcg/0.5mL dose or 50 mcg/0.25mL dose 1 completed [facility] 02/27/2021 10:45:02 COVID-19, mRNA, LNP-S, PF, 100 mcg/0.5mL dose or 50 mcg/0.25mL dose 1 completed Nidhi Gaxiolamm [facility] 02/27/2021 10:45:30 Past Encounters Encounter ID Performer Location Encounter Start Date Encounter Closed Date Diagnosis/Indication Diagnosis SNOMED-CT Code Diagnosis ICD10 Code Diagnosis Note [id number] Evelina Gómez [facility], [facility] Main Office [address] [place] [address] 03/20/2021 09:51:48 03/20/2021 10:48:30 Adult attention deficit hyperactivity disorder 839273922 F90.9 Anxiety 00484722 F41.9 Hypothyroidism 45694526 E03.9 Anemia 955444902 D64.9 Vitamin D deficiency 347 [address]236 E55.9 Administra tion of influenza vaccine 59402039 Z23 [id number] Evelina Gómez [facility], [facility] Main Office [address] [place] [address] 04/17/2021 09:47:51 04/17/2021 10:59:45 Adult attention deficit hyperactivity disorder 022036815 F90.9 As Francine Steward, & Maritza, 2019 noted, stimulants versus non-stimul ants There are no direct comparison s between stimulant and non-stimul ant medication s in clinical trials. Sherwood-kevin ses have shown that effect sizes in short-term trials of adult ADHD are greater for stimulants compared with non-stimul ant medication s, including atomoxetin e and atypical antidepres sants (bupropion , tricyclic antidepres sants, and venlafaxin e) [6,11,12]. As an example, a meta-kevin sis of 19 randomized trials of 13 medication s for adult ADHD found a greater average effect size for reduction in ADHD symptoms in patients receiving short- and long-actin g stimulant medication s (in comparison to placebo) compared with patients receiving non-stimul ant medication (in comparison to placebo) [6]. Another advantage to stimulants is that they have a clinical effect almost immediatel y after starting, while atomoxetin e and the antidepres sants have a delayed onset of full therapeuti c action of up to four weeks, related both to the titration of the medication and the delay in the onset of action of the agent [13]. Amphetamin es and methylphen idate have long been considered comparably efficaciou s for adult ADHD; however, a 2018 network meta-kevin sis of clinical trials of ADHD drugs concluded that amphetamin es were moderately more efficaciou s in reducing core ADHD symptoms compared with methylphen idate [12]. The meta-kevin sis included 51 clinical drug trials with a total of [id number] adults with ADHD. After approximat maxi 12 weeks, amphetamin es resulted in larger reductions of clinician- rated overall ADHD scores compared with methylphen idate in adults (standardi zed mean difference = -0.29 [-0.54,-0. 05]). Studies suggest that longer-act ing stimulants may be less likely to be abused or diverted [14-16]. A lower abuse potential for long-actin g compared with short-acti ng stimulants is based on studies demonstrat ing greater subjective responses and potential reinforcem ent for immediate- release stimulants compared with extended-r elease. Di Steward MD, Naa Escamilla MD, & Louis Salas, PhD. (December 01). Approach to treating attention deficit hyperactiv ity disorder in adults. Anxiety 31855149 F41.9 Doing very well with Lexapro. Hypothyroidism 02471876 E03.9 [id number] DUKE Prajapati-MARY, PMPETER-MARY Main Office [address] [place] [address] 05/15/2021 09:56:37 05/15/2021 10:24:18 Adult attention deficit hyperactivity disorder 512913579 F90.9 As Francine Steward, & Maritza, 2019 noted, stimulants versus non-stimul ants There are no direct comparison s between stimulant and non-stimul ant medication s in clinical trials. Sherwood-kevin ses have shown that effect sizes in short-term trials of adult ADHD are greater for stimulants compared with non-stimul ant medication s, including atomoxetin e and atypical antidepres sants (bupropion , tricyclic antidepres sants, and venlafaxin e) [6,11,12]. As an example, a meta-kevin sis of 19 randomized trials of 13 medication s for adult ADHD found a greater average effect size for reduction in ADHD symptoms in patients receiving short- and long-actin g stimulant medication s (in comparison to placebo) compared with patients receiving non-stimul ant medication (in comparison to placebo) [6]. Another advantage to stimulants is that they have a clinical effect almost immediatel y after starting, while atomoxetin e and the antidepres sants have a delayed onset of full therapeuti c action of up to four weeks, related both to the titration of the medication and the delay in the onset of action of the agent [13]. Amphetamin es and methylphen idate have long been considered comparably efficaciou s for adult ADHD; however, a 2018 network meta-kevin sis of clinical trials of ADHD drugs concluded that amphetamin es were moderately more efficaciou s in reducing core ADHD symptoms compared with methylphen idate [12]. The meta-kevin sis included 51 clinical drug trials with a total of 8131 adults with ADHD. After approximat maxi 12 weeks, amphetamin es resulted in larger reductions of clinician- rated overall ADHD scores compared with methylphen idate in adults (standardi zed mean difference = -0.29 [-0.54,-0. 05]). Studies suggest that longer-act ing stimulants may be less likely to be abused or diverted [14-16]. A lower abuse potential for long-actin g compared with short-acti ng stimulants is based on studies demonstrat ing greater subjective responses and potential reinforcem ent for immediate- release stimulants compared with extended-r elease. Di Steward MD, Naa Escamilla MD, & Louis Salas, PhD. (December 01). Approach to treating attention deficit hyperactiv ity disorder in adults. Anxiety [id number] F41.9 Doing very well with Lexapro. Hypothyroidism [id number] E03.9 Counseled patient that Hypothyroi dism is when you do not make enough thyroid hormone. Common signs & symptoms of low levels of thyroid hormone include but are not limited to: tired,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 significan t breakthrou gh symptoms. Hypothyroidism 77620504 E03.9 continue medication Generalize d anxiety disorder 73124290 F41.1 Doing much better with Fluoxetine . Continue regimen. [id number] Evelina Gómez, [facility] Main Office [address] [place] [address] 01/12/2023 10:36:29 01/12/2023 11:55:23 Adult attention deficit hyperactivity disorder 833910748 F90.9 As Francine Steward, & Maritza, 2019 noted, stimulants versus non-stimul ants There are no direct comparison s between stimulant and non-stimul ant medication s in clinical trials. Sherwood-kevin ses have shown that effect sizes in short-term trials of adult ADHD are greater for stimulants compared with non-stimul ant medication s, including atomoxetin e and atypical antidepres sants (bupropion , tricyclic antidepres sants, and venlafaxin e) [6,11,12]. As an example, a meta-kevin sis of 19 randomized trials of 13 medication s for adult ADHD found a greater average effect size for reduction in ADHD symptoms in patients receiving short- and long-actin g stimulant medication s (in comparison to placebo) compared with patients receiving non-stimul ant medication (in comparison to placebo) [6]. Another advantage to stimulants is that they have a clinical effect almost immediatel y after starting, while atomoxetin e and the antidepres sants have a delayed onset of full therapeuti c action of up to four weeks, related both to the titration of the medication and the delay in the onset of action of the agent [13]. Amphetamin es and methylphen idate have long been considered comparably efficaciou s for adult ADHD; however, a 2018 network meta-kevin sis of clinical trials of ADHD drugs concluded that amphetamin es were moderately more efficaciou s in reducing core ADHD symptoms compared with methylphen idate [12]. The meta-kevin sis included 51 clinical drug trials with a total of 8131 adults with ADHD. After approximat maxi 12 weeks, amphetamin es resulted in larger reductions of clinician- rated overall ADHD scores compared with methylphen idate in adults (standardi zed mean difference = -0.29 [-0.54,-0. 05]). Studies suggest that longer-act ing stimulants may be less likely to be abused or diverted [14-16]. A lower abuse potential for long-actin g compared with short-acti ng stimulants is based on studies demonstrat ing greater subjective responses and potential reinforcem ent for immediate- release stimulants compared with extended-r elease. Di Steward MD, Naa Escamilla MD, & Louis Slaas, PhD. (2018, December 01). Approach to treating attention deficit hyperactiv ity disorder in adults. Changed to Vyvanse to provide a longer benefit as Concerta is wearing out quickly. Hypothyroidism 39219317 E03.9 taking medication . labs to eval levels. Generalize d anxiety disorder 45345024 F41.1 worsening given the inability to take the medication consistent ly because of distress and pain with dissolving in upper esophagus. Obsessive- compulsive disorder 207882484 F42.9 worsening given the inability to take the medication consistent ly because of distress and pain with dissolving in upper esophagus. [place]. [id number] Evelina Gómez [facility], [facility]- Main Office [address] [place] [address] 02/09/2023 09:24:13 02/09/2023 18:28:21 Adult attention deficit hyperactivity disorder 167487555 F90.9 As Francine Steward, & Maritza, 2019 noted, stimulants versus non-stimul ants There are no direct comparison s between stimulant and non-stimul ant medication s in clinical trials. Sherwood-kevin ses have shown that effect sizes in short-term trials of adult ADHD are greater for stimulants compared with non-stimul ant medication s, including atomoxetin e and atypical antidepres sants (bupropion , tricyclic antidepres sants, and venlafaxin e) [6,11,12]. As an example, a meta-kevin sis of 19 randomized trials of 13 medication s for adult ADHD found a greater average effect size for reduction in ADHD symptoms in patients receiving short- and long-actin g stimulant medication s (in comparison to placebo) compared with patients receiving non-stimul ant medication (in comparison to placebo) [6]. Another advantage to stimulants is that they have a clinical effect almost immediatel y after starting, while atomoxetin e and the antidepres sants have a delayed onset of full therapeuti c action of up to four weeks, related both to the titration of the medication and the delay in the onset of action of the agent [13]. Amphetamin es and methylphen idate have long been considered comparably efficaciou s for adult ADHD; however, a 2018 network meta-kevin sis of clinical trials of ADHD drugs concluded that amphetamin es were moderately more efficaciou s in reducing core ADHD symptoms compared with methylphen idate [12]. The meta-kevin sis included 51 clinical drug trials with a total of 8131 adults with ADHD. After approximat maxi 12 weeks, amphetamin es resulted in larger reductions of clinician- rated overall ADHD scores compared with methylphen idate in adults (standardi zed mean difference = -0.29 [-0.54,-0. 05]). Studies suggest that longer-act ing stimulants may be less likely to be abused or diverted [14-16]. A lower abuse potential for long-actin g compared with short-acti ng stimulants is based on studies demonstrat ing greater subjective responses and potential reinforcem ent for immediate- release stimulants compared with extended-r elease. Di Steward MD, Naa Escamilla MD, & Louis Salas, PhD. (December 01). Approach to treating attention deficit hyperactiv ity disorder in adults. Changed to Vyvanse to provide a longer benefit as Concerta is wearing out quickly. Hypothyroidism 90135724 E03.9 doing well. Continue medication . Generalize d anxiety disorder 35845807 F41.1 Doing much better given the ability to take the medication consistent ly. Obsessive- compulsive disorder 749252585 F42.9 Has been doing better now with the medication and ability to swallow. She is able to consistent ly take her medication s as directed. [id number] Evelina Gómez [facility], [facility] Main Office [address] [place] [address] 02/28/2024 15:13:40 02/28/2024 19:09:50 Hypothyroidism 83719928 E03.9 has not been on medication for months as she was undergoing IVF. Had her daughter and having a lot of not feeling well and feeling off. Labs obtained to eval levels. Generalize d anxiety disorder 35314635 F41.1 Recently had a new baby and having more increasing anxiety along with irritabili ty. No depression . Anxiety per her report is worsening. Vitamin D deficiency 347 39572 E55.9 levels had been low. stopped when on IVF. has since had baby and need to know where levels are. [id number] Evelina Zackery Gómez [facility], [facility] Telemedic ine [address] [place] [address] 03/27/2024 14:46:33 03/27/2024 16:01:29 Hypothyroidism 48024163 E03.9 Generalize d anxiety disorder 81077355 F41.1 Alkaline p hosphatase above reference range 639082528 R74.8 [id number] Evelina Vizcarra Rico [facility], [facility] Telemedic ine [address] [place] [address] 06/18/2024 14:52:32 06/18/2024 16:08:43 Hypothyroidism 16064523 E03.9 Generalize d anxiety disorder 21597849 F41.1 Alkaline p hosphatase above reference range 202180861 R74.8 Vitamin D deficiency 347 96398 E55.9 Health Concerns Section Related Observation LastModified by Organization Detai ls LastModified Time None Recorded Concern Status LastModified by Organization Details LastModified Time None Recorded Advance Directives Directive N: Payers Encounter Date Sequence Insurance Name Policy Number Policy Masterson Covered Member ID Masterson Member ID Guarantor Name 01/12/2023 1 [place] [id number] Ha Hou Jourdan [id number] [employer] Elias Ameya Soliman 02/09/2023 1 [place] [id number] Ha Griffin Ameya Soliman [id number] [employer] [place] Soliman 02/28/2024 1 [employer]ATURE [employer]AT[employer] (PPO) [facility] [place] Soliman [id number] [facility] Elias Ameya Soliman 03/27/2024 1 [employer] (PPO) [facility] [place] Soliman [id number] [facility] [place] Soliman 06/18/2024 1 [employer] (PPO) [facility] Elias Ameya Soliman [id number] [facility] Elias Soliman Notes Date Note Type Note Provider Name and Address Organization Details Recorded Time 01/12/2023 text/html ADHD AdultReport ed bypatient.Work/Schoo l Performance:learning Organization:loses things/forgetful Appetite:normal appetite; no binge eating Mood:stable Sleep:good Friends:well connected with peers Family:no new stressors Self Esteem:high Attention:able to focus Hyperactivity:hypera ctive: at home Impulsivity:is not impulsive Tasking:able to initiate tasks; able to move on to the next task;procrastinates Medication Side Effects:no fainting; no dizziness; no chest pain; no shortness of breath; no seizures; no change in exercise tolerance; no headaches; no tics OCD / TIFFANIE: Has been trying to take the Fluoxetine, but the capsule every time is getting lodged in her upper esophagus and dissolving there causing significant distress and pain. Has tried everything to get the capsule down. It is the only one she has problems with.She has found improvement with obsessions and compulsions with Fluoxetine unlike the other medications she has used in the past. Her TIFFANIE has been well managed with Fluoxetine as well. Given the situation with the capsule she has been having issues taking it and because of such she is having significant worsening symptoms. Evelina Vizcarra BARBI Gómez, [facility]- [address] [place], [address], [facility] 01/12/2023 11:29:23 02/09/2023 text/html ADHD AdultReport ed bypatient.Work/Schoo l Performance:learning Organization:loses things/forgetful Appetite:normal appetite; no binge eating Mood:stable Sleep:good Friends:well connected with peers Family:no new stressors Self Esteem:high Attention:able to focus Hyperactivity:hypera ctive: at home Impulsivity:is not impulsive Tasking:able to initiate tasks; able to move on to the next task;procrastinates Medication Side Effects:no fainting; no dizziness; no chest pain; no shortness of breath; no seizures; no change in exercise tolerance; no headaches; no tics Patient Verification & Telemedicine Based Consent. Today's visit was conducted virtually due to COVID-19 countermeasures. The patient/POA/Caregive r has given verbal consent to have today's visit conducted by this same means with treatment provided remotely. The patient/POA/Caregive r verbally consents to the billing and collection practices of the provider's medical group. Requested telemedicine visit due to COVID-19 and provided verbal consent prior to visit. Symptoms and conditions treated are done via subjective statements and explanations thus may or may not fully treat the condition given it is based on subjective statements. Video and audio conferencing performed. OCD / TIFFANIE: Doing better with the pharmacy change in the medication. Capsules are different, smaller, and not getting stuck in throat. Symptoms are doing much better as able to take the medications as directed. Evelina CarlozBARBI Lowery, [facility] [address] [place], [address], [facility] 02/09/2023 14:12:08 02/28/2024 text/html Anxiety/Depressi onRe ported bypatient.Quality:in creased anxiety Severity:denies suicidal ideations; able to maintain relationships Duration:frequent Onset/Timing:still present Associated Symptoms:denies homicidal ideations; no significant weight gain; no significant weight loss; no visual/auditory hallucinations; no delusions; no shortness of breath; no crying spells; no panic; no isolation; sleeping well; appetite good; energy good; no apathy; maintaining functionality;high irritability;anxiety HypothyroidReported bypatient.Reason for Visit:worsening symptoms; start medication; TSH check/labs Duration:>12 months Associated Symptoms:no weakness; no lightheadedness; no fatigue; no cold intolerance; no constipation; no weight gain; no involuntary weight loss; normal mood; no menstrual irregularity; no pain; no dry/coarse skin; no edema; no deepening of the voice; no hoarseness; no goiter; no mass detected; no chest pain; no palpitations Treatment:Just had a baby and was on IVF. Has not restarted medication for several months. Evelina Gómez, [facility], PMHNP-BC [address] [place], [address], [facility] 02/28/2024 19:02:07 03/27/2024 text/html Patient Verifica tion & Telemedicine Based Consent. Today's visit was conducted virtually due to COVID-19 countermeasures. The patient/POA/Caregive r has given verbal consent to have today's visit conducted by this same means with treatment provided remotely. The patient/POA/Caregive r verbally consents to the billing and collection practices of the provider's medical group. Requested telemedicine visit due to COVID-19 and provided verbal consent prior to visit. Symptoms and conditions treated are done via subjective statements and explanations thus may or may not fully treat the condition given it is based on subjective statements. Video and audio conferencing performed. Moris is a 29-year-old female presenting for a follow-up via telemedicine for Generalized Anxiety Disorder (TIFFANIE), hypothyroidism, and elevated alkaline phosphatase. Moris reports improvement in her anxiety symptoms with fluoxetine, but she continues to experience breakthrough symptoms. She was previously prescribed 20 mg of fluoxetine, and she expresses the desire to increase the dosage for better symptom control. She denies any recent stressors or changes in her daily life that could be exacerbating her anxiety. Moris's hypothyroidism has been stable, and recent lab results show thyroid levels within the normal range, thus not requiring any current medication adjustments. Additionally, her recent labs indicate elevated alkaline phosphatase levels, but she denies any associated symptoms such as fatigue, jaundice, or abdominal discomfort. She acknowledges that her vitamin D levels have been low in the past and underwent IVF, which may be contributing to the lab results. 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 She denies new or worsening symptoms of depression or other cognitive impairments but does note occasional difficulty with focus and concentration, possibly due to adjusting to a new routine. Evelina Gómez, [facility], PMHNP-BC [address] [place], [address], [facility] 03/27/2024 16:00:56 06/18/2024 text/html Patient Verifica tion & Telemedicine Based Consent. Today's visit was conducted virtually due to COVID-19 countermeasures. The patient/POA/Caregive r has given verbal consent to have today's visit conducted by this same means with treatment provided remotely. The patient/POA/Caregive r verbally consents to the billing and collection practices of the provider's medical group. Requested telemedicine visit due to COVID-19 and provided verbal consent prior to visit. Symptoms and conditions treated are done via subjective statements and explanations thus may or may not fully treat the condition given it is based on subjective statements. Video and audio conferencing performed. Moris presents for a follow-up visit via telemedicine for hypothyroidism, generalized anxiety disorder, elevated alkaline phosphatase level and vitamin d deficiency. Her hypothyroidism has been well-controlled, with normal thyroid function and no current medication requirements. For her TIFFANIE, she has been on fluoxetine 40 mg daily, which has significantly improved her symptoms, allowing her to function better overall. The patient reports that her anxiety is much more manageable, and she has not had any significant flare-ups recently. The patient has a history of adjustment issues, including thyroid problems after the first child. However, her main concern at the moment is the ongoing elevation of her alkaline phosphatase (Alk Phos) levels, which have been persistently high. Recent lab results show her Alk Phos at 198, which is considerably elevated from prior readings (178). While she remains asymptomatic, this persistent elevation is worrisome, especially in the absence of other abnormal findings. A comprehensive metabolic panel (CMP) showed no significant abnormalities other than the elevated Alk Phos. The patient is awaiting the results of isoenzyme testing to determine whether the elevated Alk Phos is related to liver, bone, or another tissue issue. Additionally, the patient was noted to have low vitamin D levels. There are no new concerns about her mental health or other chronic conditions at this time. The patient also reports no significant work-related or social issues at present. Evelina Gómez, [facility], PMHNP-BC [address] [place], [address], [facility] - [facility] 06/18/2024 15:56:35 OBGyn Episode No OBEpisode recorded.
--- OUTSIDE RECORDS SUMMARY | 2024-10-11 15:24 | XMS_ITS | Patient Health Record ---
Author Organization [facility] Address [address] [place] [address] Care Team Providers Care Supervisor Coke Handling Name Role Phone Evelina Daniels Primary Care Provider Meme Ley Unavailable [phone] [facility], Provider Unavailable Unavailab le Allergies No Known Allergies Reason For Referral No Information Medications Medication SIG (Take, Route, Frequency, Duration) Notes Start Date End Date Status LEXAPRO 20 mg 1 tab(s) orally bid Active CONCERTA 36 mg/24 hr 1 tab(s) orally once a day (in the morning) for 30 day(s) Active SYNTHROID 25 mcg (0.025 mg) 1 tab(s) orally once a day for 30 day(s) Active Concerta 36 MG 1 tab(s) orally once a day (in the morning) for 30 day(s) Active METFORMIN 500 mg 1 tab(s) orally 2 times a day for 30 day(s) Active metFORMIN HCl 500 MG 1 tab(s) orally 2 times a day for 30 day(s) Active Synthroid 25 MCG 1 tab(s) orally once a day for 30 day(s) Active EPINEPHRINE 0.3 mg as directed intramuscularly once for 30 day(s) 06/09/2021 Active Lexapro 20 MG 1 tab(s) orally bid Active EPINEPHrine 0.3 MG DIRECTED INTRAMUSCULARLY ONCE for 30 DAY(S) *Please review and pick correct strength-formulati on from Medispan options. If intended option is not shown, discontinue and re-order from Quick Search* 06/09/2021 Active Social History Tobacco Use: Social History Observation Description Date Details (start date - stop date) Never Smoker NA - NA Smoking Smart Form: Question Answer Notes Are you a: never smoker Problems Problem Type SNOMED Code ICD Code Onset Dates Problem Status W/U Status Risk Notes Problem Idiopathic urticaria (65057595) Idiopathic urticaria (L50.1) Active confirmed Problem Hypothyroidism (32716779) Hypothyroidism, unspecified (E03.9) Active confirmed Problem Polycystic ovary syndrome (disorder) (479589569) Polycystic ovarian syndrome (E28.2) Active confirmed Problem Anxiety disorder (129322205) Anxiety disorder, unspecified (F41.9) Active confirmed Problem Attention deficit hyperactivity disorder (711523953) Attention-deficit hyperactivity disorder, unspecified type (F90.9) Active confirmed Problem Chronic allergic conjunctivitis (61430790) Other chronic allergic conjunctivitis (H10.45) Active confirmed Problem Allergic rhinitis caused by pollen (disorder) (70103819) Allergic rhinitis due to pollen (J30.1) Active confirmed Problem Allergic rhinitis (78871851) Other allergic rhinitis (J30.89) Active confirmed Problem Ingestion dermatitis caused by food (742700091) Dermatitis due to ingested food (L27.2) Active confirmed Problem Anaphylaxis caused by shellfish (disorder) (924687761) Anaphylactic reaction due to shellfish (crustaceans), initial encounter (T78.02XA) Active confirmed Problem Allergy to seafood (20852233) Allergy to seafood (Z91.013) Active confirmed Encounters Encounter Location Date Provider Diagnosis [facility] - [address] [address] 12/17/2023 Provider [facility] Plan Of Treatment Pending Test Test Name Order Date SCALLOP (F338) IGE 06/09/2021 CRAB (F23) IGE 06/09/2021 SHRIMP (F24) IGE 06/09/2021 LOBSTER (F80) IGE 06/09/2021 IMMUNOGLOBULIN E 06/09/2021 CLAM (F207) IGE 06/09/2021 OYSTER (F290) IGE 06/09/2021 Insurance Providers Payer Name Payer Address Payer Phone Subscriber Number Group Number Insured Name Patient Relationship to Insured Coverage Start Date Coverage End Date [facility] [id number] MARRY Velez [phone] [id number] Jourdan , [employer] Self - patient is the insured Medical (General) History Medical History History ICD Code Chronic urticaria Systemic allergic reaction after eating shrimp 07/10/16 Allergic rhinitis and conjunctivitis Hypothyroidism, unspecified E03.9 Polycystic ovarian syndrome E28.2 Attention-deficit hyperactivity disorder , unspecified type F90.9 Anxiety disorder, unspecified F41.9 Surgical History Surgery Date(Month/Year) Tonsillectomy 03/13/2011 Periacetabular Osteotomy 07/03/2014 Hardware removal 06/25/2015 Hip Surgery 06/23/2016
--- OUTSIDE RECORDS SUMMARY | 2024-10-11 15:25 | XMS_ITS ---
Author Organization [facility] Address [address] [place] [address] Care Team Providers Care Cio Name Role Phone Evelina Daniels Primary Care Provider Unav dee Hans Meme Unavailable [phone] [facility], Provider Unavailable Unavailab le [facility] Medications Medication SIG (Take, Route, Frequency, Duration) Notes Start Date End Date Status Concerta 36 MG 1 tab(s) orally once a day (in the morning) for 30 day(s) Active metFORMIN HCl 500 MG 1 tab(s) orally 2 times a day for 30 day(s) Active Synthroid 25 MCG 1 tab(s) orally once a day for 30 day(s) Active Lexapro 20 MG 1 tab(s) orally bid Active EPINEPHrine 0.3 MG DIRECTED INTRAMUSCULARLY ONCE for 30 DAY(S) *Please review and pick correct strength-formulati on from Medispan options. If intended option is not shown, discontinue and re-order from Quick Search* 06/09/2021 Active Encounters Encounter Location Date Provider Diagnosis [facility] [address] [place] [address] 12/17/2023 Provider [facility] Plan Of Treatment Medication Medication Name Sig Start Date Stop Date Notes EPINEPHrine 0.3 MG DIRECTED INTRAMUSCULARLY ONCE for 30 DAY(S) 06/09/2021 *Please review and pick correct strength-formulation from Medispan options. If intended option is not shown, discontinue and re-order from Quick Search* Progress Notes * Moris SOLIMAN KDOB: [birth year] (29 yo F)Acc No.[id number]:12/17/2023 Patient: Moris MERIDA Provider: Justyna Canales :1995 A ge:28 Y S ex:Female Date:12/17/2023 [facility] [address] Pcp:BARBI Mcelroy Subjective: * Chief Complaints: * 1 . Multum To Medispan Conversion Encounter. * Medical History: * Medications: T aking Concerta 36 MG Tablet Extended Release 1 tab(s) orally once a day (in the morning) , Taking metFORMIN HCl 500 MG Tablet 1 tab(s) orally 2 times a day , Taking Synthroid 25 MCG Tablet 1 tab(s) orally once a day , Taking Lexapro 20 MG Tablet 1 tab(s) orally bid Objective: * Vitals: Assessment: Plan: * Treatment: * Billing Information: * Visit Code: * Procedure Codes: * Electronic signature of Prov kathy MoyerZ-Migration on 10/11/2024 at 03:24 PM CDT Sign off status: Pending * Provider: Justyna Canales Date: 0 12/17/2023 Generated for Hannah gao/Madi/Grant on: 10/11/2024 03:24 PM CDT
[2024-10-11 16:03] LABS: Basophils Percent Auto 0.6 % (0.2-1.2); Eosinophils Absolute Auto 0.1 K/mm3 (0-0.3); Eosinophils Percent Auto 1.7 % (0-4.4); Hematocrit 42.8 % (37.0-47.0); Hemoglobin 12.9 g/dL (12.0-15.0); Immature Granulocyte Absolute 0.03 K/mm3 (0.00-0.031); Immature Granulocyte Percent A 0.5 % (0-0.5); Lymphocytes Absolute Auto 2.26 K/mm3 (0.9-3.2); Lymphocytes Percent Auto 35.5 % (18.3-44.2); Mean Corpuscular HGB Conc 30.1 g/dl (32-36); Mean Corpuscular Hemoglobin 24.5 pg (26-34); Mean Corpuscular Volume 81.2 fl (80-100); Mean Platelet Volume 9.8 fl (7.4-10.4); Monocytes Absolute Auto 0.4 K/mm3 (0.1-0.6); Monocytes Percent Auto 6.6 % (2.6-8.5); Neutrophils Absolute Auto 3.5 K/mm3 (1.3-6.7); Neutrophils Percent Auto 55.1 % (45.5-73.1); Platelet Count Result 312 k/mm3 (150-375); Red Blood Count 5.27 M/mm3 (4.2-5.4); Red Cell Distribution Width 14.3 % (11.5-14.5); White Blood Count 6.4 K/mm3 (4.5-10.0)
[2024-10-11 16:18] LABS: Alanine Aminotransferase 20 U/L (6-35); Albumin Level 4.7 g/dL (3.5-5.1); Alkaline Phosphatase 134 U/L (38-126); Amylase 72 U/L (30-110); Anion Gap 10 mmol/L (4-12); Aspartate Amino Transferase 19 U/L (14-36); Bilirubin,Total 0.3 mg/dL (0.2-1.3); Blood Urea Nitrogen 17 mg/dL (7-17); Calcium 8.8 mg/dL (8.4-10.2); Carbon Dioxide 25 mmol/L (22-30); Chloride 106 mmol/L (98-107); Estimated Glomerular Filt Rate > 60; Glucose 86 mg/dL (65-110); Lipase 87 U/L (23-300); Magnesium 2.3 mg/dL (1.6-2.3); Phosphorus 4.1 mg/dL (2.5-4.5); Sodium 141 mmol/L (137-145)
[2024-10-11 17:50] LABS: Parathyroid Intact 165.3 pg/mL (14.5-75.2)
[2024-10-11 17:55] LABS: Vitamin D 25 Hydroxy 36.4 ng/mL
[2024-10-18 14:49] LABS: Alkaline Phosphatase 135 U/L (31-125)
== END 2024-10-11 14:50 | disposition home or self-care (01) ==
PROVIDERS: PCP Nurse Practitioner Family; Visit Provider Nurse Practitioner Family
DX: R74.8 Abnormal levels of other serum enzymes (principal); E83.39 Other disorders of phosphorus metabolism
CPT/HCPCS: 36415; 80053; 82150; 82306; 82330; 83690; 83735; 83970; 84075; 84080; 84100; 85025